=== PATIENT | male | born 1960 | race Caucasian/White ===

== ENCOUNTER 2018-08-09 14:03 | Emergency (ER) | payer OTHER, SELFPAY ==
[~2018-08-09] VITALS: Ht 185.4 cm; Wt 121.4 kg
[~2018-08-09 14:03] MED LIST: LOP25T PO; OLME1TAB25 PO; OMEP-84 PO; ZOC40T PO
[2018-08-09 14:06] VITALS: BP 187/111
[2018-08-09 14:26] LABS: BASOPHILS % (AUTO) 0.1 % (0-1); EOSINOPHILS # (AUTO) 0.1 X10'3 (0-0.9); EOSINOPHILS % (AUTO) 0.7 % (0-6); HEMATOCRIT 52.5 % (42.0-52.0); HEMOGLOBIN 17.5 g/dl (14.0-17.9); LYMPHOCYTES # (AUTO) 0.7 X10'3 (1.1-4.8); LYMPHOCYTES % (AUTO) 6.5 % (21-51); MEAN CORPUSCULAR HEMOGLOBIN 28.9 PG (27.0-31.0); MEAN CORPUSCULAR HGB CONC 33.3 % (33.0-36.5); MEAN CORPUSCULAR VOLUME 86.8 FL (78-98); MEAN PLATELET VOLUME 9.6 FL (7.4-10.4); MONOCYTES # (AUTO) 0.5 X10'3 (0-0.9); MONOCYTES % (AUTO) 4.5 % (2-12); NEUTROPHILS # (AUTO) 9.3 X10'3 (1.8-7.7); NEUTROPHILS % (AUTO) 88.2 % (42-75); PLATELET COUNT 133 X10'3 (140-440); RED BLOOD COUNT 6.05 X10'6 (4.70-6.10); RED CELL DISTRIBUTION WIDTH 13.4 % (11.5-14.5); WHITE BLOOD COUNT 10.6 X10'3 (4.5-11.0)
[2018-08-09 14:35] LABS: COLOR,URINE YELLOW (Yellow); GLUCOSE, URINE 500 mg/dl (Neg); KETONES,URINE 40 mg/dl (Neg); LEUKOCYTE ESTERASE ,URINE NEGATIVE (Neg); NITRITES, URINE NEGATIVE (Neg); OCCULT BLOOD,URINE MODERATE (Neg); PROTEIN,URINE >=300 mg/dl (Neg); UROBILINOGEN,URINE 0.2 E.U/dL (0.2-1.0)
[2018-08-09 14:42] LABS: ALANINE AMINOTRANSFERASE 34 U/L (12-78); ALBUMIN 3.7 G/DL (3.4-5.0); ALBUMIN/GLOBULIN RATIO 0.8 (1.1-1.5); ALKALINE PHOSPHATASE 196 IU/L (46-116); ANION GAP 9 (8-16); ASPARTATE AMINO TRANSFERASE 56 U/L (10-37); BILIRUBIN,TOTAL 0.7 MG/DL (0.1-1.0); BLOOD UREA NITROGEN 15 MG/DL (7-18); BUN/CREATININE RATIO 13.8 (5.4-32.0); CALCIUM 9.1 MG/DL (8.5-10.1); CHLORIDE 98 MMOL/L (99-107); CREATININE 1.09 MG/DL (0.60-1.10); GLUCOSE 236 MG/DL (70-104); POTASSIUM 4.1 MMOL/L (3.5-5.1); SODIUM 135 MMOL/L (135-145); TOTAL CARBON DIOXIDE 27.8 MMOL/L (24-32); TOTAL PROTEIN 8.1 G/DL (6.4-8.2); eGFR 69 ML/MIN
[2018-08-09 14:45] LABS: INR 1.1 INR; PARTIAL THROMBOPLASTIN TIME 27 SECONDS (22-32); PROTHROMBIN TIME 10.8 SECONDS (9.0-12.0)
[2018-08-09 14:46] LABS: CLARITY,URINE Slightly Cloudy (Clear); UA COLLECTION TYPE CLN CATCH MIDSTREAM
[2018-08-09 14:49] LABS: BACTERIA,URINE NONE SEEN /HPF (Neg); WBC,URINE 0-4 /HPF (0-4)
[2018-08-09 14:50] LABS: MUCUS STRANDS FEW /LPF (Neg); SQUAMOUS EPITHELIAL CELL,UR FEW /LPF (FEW)
[2018-08-09] MEDS ORDERED: normal saline 1000ML IV soln IVB ONE (15:55)
[2018-08-09] MEDS ORDERED: iohexol 300mg/ml 100ml inj. ONE (15:59)
[2018-08-09 16:09] LABS: LIPASE 268 U/L (73-393)
[2018-08-09] MEDS ORDERED: morphine 4 MG/ML inj SYRINge IV ONE (16:25)
[2018-08-09] MEDS ORDERED: ondansetron/PF 4mg/2ml inj IV ONE (16:25)
[2018-08-09] MEDS ORDERED: HYDR-4353 PO (16:50)
[2018-08-09] MEDS ORDERED: ONDA4TAB6 PO (16:50)
== END 2018-08-10 00:13 | disposition home or self-care (01) ==
LOC: ER 14:03
DX: K86.89 Other specified diseases of pancreas (principal); R63.4 Abnormal weight loss; R61 Generalized hyperhidrosis; R11.2 Nausea with vomiting, unspecified; M54.9 Dorsalgia, unspecified; I10 Essential (primary) hypertension; E78.00 Pure hypercholesterolemia, unspecified; F12.90 Cannabis use, unspecified, uncomplicated; Z79.899 Other long term (current) drug therapy
CPT/HCPCS: 36415; 71045; 74177; 80053; 81001; 82948; 83690; 84484; 85025; 85610; 85730; 93005; 96374; 96375; 99284; J2270; J2405; J7030; Q9967

== ENCOUNTER 2019-04-30 19:37 | Inpatient (IN) | payer BC, OTHER ==
[~2019-04-30] VITALS: Ht 185.4 cm; Wt 113.6 kg
[~2019-04-30 19:37] MED LIST changes: +ONDA4TAB6 PO
[2019-04-30 20:22] LABS: BASOPHILS % (AUTO) 0.2 % (0-1); EOSINOPHILS % (AUTO) 0.3 % (0-6); HEMATOCRIT 47.9 % (42.0-52.0); HEMOGLOBIN 15.9 g/dl (14.0-17.9); LYMPHOCYTES # (AUTO) 0.5 X10'3 (1.1-4.8); LYMPHOCYTES % (AUTO) 5.5 % (21-51); MEAN CORPUSCULAR HEMOGLOBIN 29.9 PG (27.0-31.0); MEAN CORPUSCULAR HGB CONC 33.2 g/dL (33.0-36.5); MEAN CORPUSCULAR VOLUME 89.9 FL (78-98); MEAN PLATELET VOLUME 9.9 FL (7.4-10.4); MONOCYTES # (AUTO) 0.2 X10'3 (0-0.9); NEUTROPHILS # (AUTO) 8.3 X10'3 (1.8-7.7); PLATELET COUNT 135 X10'3 (140-440); RED BLOOD COUNT 5.33 X10'6 (4.70-6.10); RED CELL DISTRIBUTION WIDTH 15.5 % (11.5-14.5)
[2019-04-30 20:24] LABS: PARTIAL THROMBOPLASTIN TIME 29 SECONDS (22-32)
[2019-04-30 20:26] LABS: ALANINE AMINOTRANSFERASE 27 U/L (12-78); ALBUMIN 4.2 G/DL (3.4-5.0); ALBUMIN/GLOBULIN RATIO 1.1 (1.1-1.5); ALKALINE PHOSPHATASE 176 IU/L (46-116); ANION GAP 13 (8-16); ASPARTATE AMINO TRANSFERASE 33 U/L (10-37); BILIRUBIN,TOTAL 0.6 MG/DL (0.1-1.0); BLOOD UREA NITROGEN 17 MG/DL (7-18); CALCIUM 9.1 MG/DL (8.5-10.1); CHLORIDE 106 MMOL/L (99-107); GLUCOSE 162 MG/DL (70-104); POTASSIUM 3.9 MMOL/L (3.5-5.1); SODIUM 144 MMOL/L (135-145); TOTAL CARBON DIOXIDE 25.5 MMOL/L (24-32); eGFR 76 ML/MIN
[2019-04-30] MEDS ORDERED: nitroGLYCERIN 1gm ointment UD TP ONE (21:20)
[2019-04-30] MEDS ORDERED: morphine 4 MG/ML inj SYRINge IV ONE (21:20)
[2019-04-30] MEDS ORDERED: ondansetron/PF 4mg/2ml inj IV ONE (21:20)
[2019-04-30] MEDS ORDERED: aspirin 81mg tab.chew PO ONE (21:20)
[2019-04-30] MEDS ORDERED: iohexol 350MG/ML 100ml bottle IV ONE (21:35)
[2019-04-30] MEDS ORDERED: hydrALAZINE 20mg/ml inj. IV ONE (21:40)
[2019-04-30] MEDS ORDERED: MESSAGE TO NURSING PO NR (22:00)
[2019-04-30] MEDS ORDERED: morphine 2 MG/ML inj. syringe IV ONE (22:35)
[2019-04-30] MEDS ORDERED: METF-438 PO (22:53)
[2019-04-30] MEDS ORDERED: ASPI-1265 PO (22:53)
[2019-04-30] MEDS ORDERED: TICA90TA PO (22:53)
[2019-04-30] MEDS ORDERED: LOSA50TA3 PO (22:53)
[2019-04-30] MEDS ORDERED: PIOG45TA19 PO (22:53)
[2019-05-01] MEDS: normal saline 1000ml 1,000 ML IV SCH ×2 (02:08→05:39)
[2019-05-01] MEDS ORDERED: mag hydrox/Alum hydrox/simeth 30ml oral suspension PO PRN (02:10)
[2019-05-01] MEDS ORDERED: magnesium hydroxide 30ml (MOM) UD suspension PO PRN (02:10)
[2019-05-01] MEDS ORDERED: ondansetron/PF 4mg/2ml inj IV PRN (02:10)
[2019-05-01] MEDS ORDERED: acetaminophen 325mg tablet PO PRN (02:10)
[2019-05-01] MEDS ORDERED: glucagon, human recombinant 1mg kit SUBCUT PRN (02:15)
[2019-05-01] MEDS ORDERED: insulin Lispro (HumaLOG) vial - multi-dose SQ SCH (02:15)
[2019-05-01] MEDS ORDERED: MESSAGE TO PHARMACY PO ONE (02:15)
[2019-05-01] MEDS ORDERED: dextrose ORAL solution 15 GM/59 ML bottle PO PRN ×2 (02:15)
[2019-05-01] MEDS ORDERED: dextrose 50%-water 50ml dispensing syringe IV PRN ×2 (02:15)
[2019-05-01 06:00] VITALS: BP 132/83
--- NOTE | 2019-05-01 06:20 | NUR ---
Patient in room MED 309. I have received report from Danae ABDUL and had the opportunity to ask questions and assume patient care.
[2019-05-01] MEDS ORDERED: heparin, porcine 5000 units/ml vial SQ SCH (08:00)
[2019-05-01] MEDS ORDERED: ticagrelor 90mg tablet PO SCH (08:00)
[2019-05-01] MEDS ORDERED: aspirin 81mg tab.chew PO SCH (08:00)
[2019-05-01] MEDS ORDERED: metoprolol tartrate 25mg tablet PO SCH (08:00)
[2019-05-01] MEDS ORDERED: losartan 50mg tablet PO SCH (08:00)
--- NOTE | 2019-05-01 08:41 | NUR ---
PAGER ID: [phone] MESSAGE: , [phone]. ANALY FRASER. ARE WE ANTICIPATING DOING A PROCEDURE ON HIM TODAY? SHOULD I BE HOLDING HIS BRILINTA AND HEPARIN? PLEASE ADVISE. RADHA ABDUL. EXT [phone] Addendum: 05/01/19 at 0936 by Radha Hemphill RN CALLED BACK WITH INSTRUCTIONS TO HOLD BRILINTA. WAS OK WITH HEPARIN BEING GIVEN AT THIS TIME.
[2019-05-01 09:19] LABS: HEMOGLOBIN A1C 6.8 % (4.5-6.2)
--- NOTE | 2019-05-01 10:00 | NUR ---
[place] documentation & medication administration: I have reviewed and agree with all interventions, assessments performed and documented by Karlos Hemphill RN.
[2019-05-01 11:00] VITALS: BP 130/76
--- NOTE | 2019-05-01 13:05 | NUR ---
Patient discharged at this time without event via ambulation (refused escort) instructions given, questions answered, verbalizes understanding, made appointment for secretary office clerk for follow up. Tele and IV dc'd, belongings sent home. No new meds, continued home medications. Eager to go home.
[2019-05-01] MEDS ORDERED: insulin glargine (Lantus) pen - multi-dose SQ SCH (21:00)
== END 2019-05-01 13:05 | disposition home or self-care (01) | DRG 392 ==
LOC: ER 19:39 → MED 3N 05-01 04:43
PROVIDERS: ADMIT Internal Medicine; ATTEND Family Medicine
PROC: B32T1ZZ Computerized Tomography (CT Scan) of Left Pulmonary Artery using Low Osmolar Contrast (ICD-10-PCS; principal; 2019-04-30)
PROC: B3201ZZ Computerized Tomography (CT Scan) of Thoracic Aorta using Low Osmolar Contrast (ICD-10-PCS; 2019-04-30)
PROC: B32S1ZZ Computerized Tomography (CT Scan) of Right Pulmonary Artery using Low Osmolar Contrast (ICD-10-PCS; 2019-04-30)
PROC: B4201ZZ Computerized Tomography (CT Scan) of Abdominal Aorta using Low Osmolar Contrast (ICD-10-PCS; 2019-04-30)
PROC: B4241ZZ Computerized Tomography (CT Scan) of Superior Mesenteric Artery using Low Osmolar Contrast (ICD-10-PCS; 2019-04-30)
PROC: B4281ZZ Computerized Tomography (CT Scan) of Bilateral Renal Arteries using Low Osmolar Contrast (ICD-10-PCS; 2019-04-30)
PROC: B42C1ZZ Computerized Tomography (CT Scan) of Pelvic Arteries using Low Osmolar Contrast (ICD-10-PCS; 2019-04-30)
PROC: B4211ZZ Computerized Tomography (CT Scan) of Celiac Artery using Low Osmolar Contrast (ICD-10-PCS; 2019-04-30)
DX: K22.4 Dyskinesia of esophagus (principal); C25.9 Malignant neoplasm of pancreas, unspecified; C78.7 Secondary malignant neoplasm of liver and intrahepatic bile duct; E11.9 Type 2 diabetes mellitus without complications; E78.00 Pure hypercholesterolemia, unspecified; I10 Essential (primary) hypertension; I25.10 Atherosclerotic heart disease of native coronary artery without angina pectoris; F12.90 Cannabis use, unspecified, uncomplicated; K21.9 Gastro-esophageal reflux disease without esophagitis; Z79.84 Long term (current) use of oral hypoglycemic drugs; Z87.11 Personal history of peptic ulcer disease; I25.2 Old myocardial infarction; Z95.1 Presence of aortocoronary bypass graft; Z95.5 Presence of coronary angioplasty implant and graft
CPT/HCPCS: 36415; 71045; 71275; 74174; 80053; 82948; 83036; 84484; 85025; 85610; 85730; 87081; 93005; 96374; 96375; 96376; 99285; G0378; J0360; J1644; J1815; J2270; J2405; J7030; Q9967

== ENCOUNTER 2019-05-16 22:34 | Emergency (ER) | payer BC, OTHER ==
[~2019-05-16] VITALS: Ht 185.4 cm; Wt 113.0 kg
[~2019-05-16 22:34] MED LIST changes: +ASPI-1265 PO; +LOSA50TA3 PO; +METF-438 PO; -OLME1TAB25 PO; -OMEP-84 PO; -ONDA4TAB6 PO; +PIOG45TA19 PO; +TICA90TA PO; -ZOC40T PO
[2019-05-16] MEDS ORDERED: normal saline 1000ML IV soln IVB ONE (23:05)
[2019-05-16] MEDS ORDERED: ondansetron/PF 4mg/2ml inj IV ONE (23:05)
[2019-05-16 23:06] LABS: BASOPHILS % (AUTO) 0.4 % (0-1); EOSINOPHILS % (AUTO) 0.4 % (0-6); HEMATOCRIT 50.5 % (42.0-52.0); HEMOGLOBIN 16.7 g/dl (14.0-17.9); LYMPHOCYTES # (AUTO) 0.6 X10'3 (1.1-4.8); LYMPHOCYTES % (AUTO) 7.1 % (21-51); MEAN CORPUSCULAR HEMOGLOBIN 29.4 PG (27.0-31.0); MEAN CORPUSCULAR HGB CONC 33.1 g/dL (33.0-36.5); MEAN CORPUSCULAR VOLUME 89.1 FL (78-98); MEAN PLATELET VOLUME 9.6 FL (7.4-10.4); MONOCYTES # (AUTO) 0.4 X10'3 (0-0.9); MONOCYTES % (AUTO) 4.9 % (2-12); NEUTROPHILS # (AUTO) 7.1 X10'3 (1.8-7.7); NEUTROPHILS % (AUTO) 87.2 % (42-75); PLATELET COUNT 130 X10'3 (140-440); RED BLOOD COUNT 5.67 X10'6 (4.70-6.10); RED CELL DISTRIBUTION WIDTH 15.5 % (11.5-14.5); WHITE BLOOD COUNT 8.2 X10'3 (4.5-11.0)
[2019-05-16] MEDS: morphine 4 MG/ML inj SYRINge IV PRN ×2 (23:17→23:43)
[2019-05-16 23:25] LABS: PARTIAL THROMBOPLASTIN TIME 24 SECONDS (22-32)
[2019-05-16 23:27] LABS: ALANINE AMINOTRANSFERASE 23 U/L (12-78); ALBUMIN 4.2 G/DL (3.4-5.0); ALBUMIN/GLOBULIN RATIO 1.1 (1.1-1.5); ALKALINE PHOSPHATASE 159 IU/L (46-116); ANION GAP 16 (8-16); ASPARTATE AMINO TRANSFERASE 34 U/L (10-37); BILIRUBIN,TOTAL 0.9 MG/DL (0.1-1.0); BLOOD UREA NITROGEN 17 MG/DL (7-18); BUN/CREATININE RATIO 14.8 (5.4-32.0); CALCIUM 9.3 MG/DL (8.5-10.1); CHLORIDE 100 MMOL/L (99-107); CREATININE 1.15 MG/DL (0.60-1.10); GLUCOSE 175 MG/DL (70-104); POTASSIUM 4.1 MMOL/L (3.5-5.1); SODIUM 138 MMOL/L (135-145); TOTAL CARBON DIOXIDE 21.6 MMOL/L (24-32); TOTAL PROTEIN 8.1 G/DL (6.4-8.2); eGFR 65 ML/MIN
[2019-05-16 23:30] LABS: TROPONIN I < 0.04 NG/ML (0.0-0.05)
[2019-05-17] MEDS ORDERED: ketorolac trometh. 30mg/ml inj. IV ONE
[2019-05-17] MEDS ORDERED: LORazepam 2 mg/ml vial IV ONE
[2019-05-17 00:10] VITALS: BP 159/109
[2019-05-17] MEDS: morphine 4 MG/ML inj SYRINge IV PRN (00:11)
[2019-05-17] MEDS ORDERED: morphine 4 MG/ML inj SYRINge IV ONE (00:25)
--- NOTE | 2019-05-17 00:29 | NUR ---
4 MG IV MORPHINE GIVEN: CLICKED WRONG MORPHINE: DR DUMONT AWARE THAT PATIENT HAD RECEIVED 8 MG IV MORPHINE AND ORDERED AN ADDITIONAL 4 MG IV MORPHINE FOR A TOTAL OF 12 MG IV MORPHINE
== END 2019-05-17 01:10 | disposition home or self-care (01) ==
LOC: ER 22:34
DX: R07.81 Pleurodynia (principal); R11.2 Nausea with vomiting, unspecified; E78.00 Pure hypercholesterolemia, unspecified; I10 Essential (primary) hypertension; E11.9 Type 2 diabetes mellitus without complications; F12.90 Cannabis use, unspecified, uncomplicated; Z95.1 Presence of aortocoronary bypass graft; Z98.890 Other specified postprocedural states; Z79.82 Long term (current) use of aspirin; Z79.84 Long term (current) use of oral hypoglycemic drugs; Z79.899 Other long term (current) drug therapy
CPT/HCPCS: 36415; 71045; 80053; 84484; 85025; 85610; 85730; 93005; 96374; 96375; 96376; 99284; J1885; J2060; J2270; J2405; J7030